=== PATIENT | female | born 1975 | race Caucasian/White ===

== ENCOUNTER 2016-08-03 05:23 | Inpatient (IN) | payer BC ==
[2016-07-30 16:20] LABS: WBC (NOT ORDERED) (RFLEX) 0 (0-5)
[2016-07-30 16:44] LABS: BASOPHILS 0.6 %; BASOPHILS ABSOLUTE 0.06 10/3/uL (0.0-0.16); EOSINOPHILS 3.6 %; EOSINOPHILS ABSOLUTE 0.39 10/3/uL (0.0-0.53); HEMATOCRIT 38.3 % (36.0-48.0); HEMOGLOBIN 12.7 g/dL (12.0-16.0); IMMATURE GRANULOCYTES 0.5 %; IMMATURE GRANULOCYTES ABSOLUTE 0.05 10/3/uL (0.0-0.11); LYMPHOCYTES 28.6 %; LYMPHOCYTES ABSOLUTE 3.06 10/3/uL (0.67-4.30); MEAN CORPUSCULAR HEMOGLOB 32.2 pg (26.0-34.0); MONOCYTES 5.8 %; MONOCYTES ABSOLUTE 0.62 10/3/uL (0.21-1.20); NEUTROPHILS 60.9 %; NEUTROPHILS ABSOLUTE 6.51 10/3/uL (2.02-8.40); PLATELET COUNT 388 10/3/uL (150-400); RBC DISTRIBUTION WIDTH 12.5 % (12.0-16.0); RED CELL COUNT 3.95 10/6/uL (4.0-5.6); WHITE BLOOD CELLS 10.7 10/3/uL (4.5-10.5)
[2016-07-30 16:47] LABS: MANUAL DIFF NO %; MEAN CORPUS HGB CONC 33.2 g/dL (32.0-36.0)
[2016-07-30 16:49] LABS: PROTIME (NOT ORD) 13.1 SEC (12.0-14.5)
[2016-07-30 17:03] LABS: A/G RATIO 1.3 (0.7-1.9); ALBUMIN 4.1 G/DL (3.5-5.0); ALKALINE PHOSPHATASE 76 U/L (45-117); BUN (BLOOD UREA NITROGEN) 12 MG/DL (6-23); CALCIUM, SERUM 9.9 MG/DL (8.5-10.4); CHLORIDE, SERUM 102 MMOL/L (96-112); CO2 (CARBON DIOXIDE) 27 MMOL/L (24-34); GFR AFRICAN AMERICAN 108 ML/MIN (>=60); GFR NON AFRICAN AMERICAN 93 ML/MIN (>=60); GLOBULIN 3.2 G/DL (2.5-4.1); GLUCOSE, SERUM 73 MG/DL (60-99); POTASSIUM, SERUM 4.6 MMOL/L (3.5-5.3); SGOT(AST) 21 U/L (5-40); SGPT(ALT) 23 U/L (5-65); SODIUM, SERUM 134 MMOL/L (135-148); TOTAL BILIRUBIN 0.2 MG/DL (0-1.2); TOTAL PROTEIN 7.3 G/DL (6.0-8.5)
[2016-07-30 17:38] LABS: ASCORBIC ACID (UR NOT ORDER) NEG (NEG); BILIRUBIN, URINE NEGATIVE (NEG); KETONE, URINE NEGATIVE (NEG); LEUKOCYTE ESTERASE(NOT OR NEG (NEG)
--- NOTE | ~2016-08-03 | CN ---
Consultation Report [facility] [address] [place]. [address] NAME: LOLITA CALLOWAY : 79 STATUS : ADM IN PAT#: [id number] AGE: 41 ADM/REG DATE : 08/03/16 MR#: [id number] REPORT SERV DATE: 08/05/16 DICTATED BY: BEN BERNAL DATE: 08/05/16 REPORT STATUS : Draft TRANSCRIBED BY: MODL DATE: 08/05/16 CONSULTATION DATE OF CONSULTATION: HISTORY OF PRESENT ILLNESS: 41-year-old, white female, who is status post surgery on 08/03/2016. 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 This was repaired and she was sent to the ICU. We were consulted today because of worsening respiratory distress overnight, where she was on a nasal cannula and her oxygen requirements have dramatically increased to being on 100% FiO2 on high BiPAP settings. She is breathing pretty rapidly and she is very anxious. Mother and fiance are in the room. Her chest x-ray today shows diffuse and traumatic worsening of bilateral infiltrates/edema. Apparently, she was having some vomiting yesterday, but she has had no fever for us. Her white blood cell count has increased. She was also put on Levophed over night for low blood pressure/hypotension. They also gave her some Lasix for low urine output, but unfortunately, her creatinine has bumped from 0.89, and 0.87, to a value of 1.35. Her blood gas this morning was 7.28, pCO2 41, PO2 107, bicarb 18.9, O2 saturation 97% on 100% FiO2 and on BiPAP 16/8. The patient states and verbalize that she was having cough and some discolored phlegm. REVIEW OF SYSTEMS: Otherwise unable to obtain. She does have a mediastinal chest tube that supposedly can be removed today and she does have a Trujillo catheter making some dark yellow urine. PAST MEDICAL HISTORY: Anxiety, depression, hypertension, and GERD. She had an echocardiogram which showed EF of 63% back in March 2016. PAST SURGICAL HISTORY: As above. SOCIAL HISTORY: She does smoke cigarettes. Occasional alcohol. ALLERGIES: MORPHINE. HOME MEDICATIONS: List reviewed. FAMILY HISTORY: Brother with leukemia. Father has cholesterol problems, hypertension, and heart failure. Mother of heart problems as well. PHYSICAL EXAMINATION: VITAL SIGNS: Per nursing flow sheet. GENERAL: Tachypneic, significant distress, and anxious. HEENT: Normocephalic and atraumatic. Pupils equal, round, and reactive to light. Consultation Report [place] [id number] [facility] [address] NAME: LOLITA CALLOWAY : 79 STATUS : ADM IN [facility]#: [id number] AGE: 41 ADM/REG DATE : 08/03/16 MR#: [id number] REPORT SERV DATE: 08/05/16 DICTATED BY: BEN BERNAL DATE: 08/05/16 REPORT STATUS : Draft TRANSCRIBED BY: CARLOS ALBERTO DATE: 08/05/16 NECK: Trachea midline. HEART: Regular rate and rhythm. No murmurs. LUNGS: Bilateral crackles. No wheezes. Positive accessory muscle use on BiPAP 16/8, 100% FiO2. GASTROINTESTINAL: Soft, nontender, and nondistended. There is a mediastinal chest tube in place. GENITOURINARY: Trujillo is in place with urine. LABORATORY DATA: Labs and radiology studies reviewed. ASSESSMENT/PLAN: 1. Acute hypoxic respiratory failure. 2. Pneumonia versus acute respiratory distress syndrome. 3. Acute kidney injury. 4. Hyponatremia. 5. Leukocytosis. 6. Status post hernia repair, which turned out to be an anterior diaphragmatic hernia Morgagni with hernia sac. PLAN: Intubation, the patient agreeable to elective intubation. We will check cultures, blood, urine, sputum, as well as lactate, and procalcitonin level, as well as cortisol. PICC line will be needed because of her being on pressors. We will get urine studies and give the patient a fluid bolus over a couple of hours. Start antibiotics include vancomycin and Zosyn. We will stop any nephrotoxic medications that could contribute to her elevated creatinine. 60 minutes of critical care time. CEP/MODL Ben Bernal DO / [id number] CC: MD Gael Perezke, MD
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
--- NOTE | ~2016-08-03 | OP ---
Record Of Operation [facility] [address] [place]. [address] NAME: LOLITA CALLOWAY : 79 STATUS : ADM IN [facility]#: [id number] AGE: 41 ADM/REG DATE : 08/03/16 MR#: [id number] REPORT SERV DATE: 08/05/16 DICTATED BY: BEN BERNAL DATE: 08/05/16 REPORT STATUS : Draft TRANSCRIBED BY: MODL DATE: 08/05/16 DATE OF PROCEDURE: 08/05/2016 PROCEDURE: Endotracheal intubation, elective semi-urgent. PREPROCEDURE DIAGNOSIS: Respiratory failure. POSTPROCEDURE DIAGNOSIS: Respiratory failure. DESCRIPTION: Verbal consent obtained from the patient while the mother and fiancee were in the room. The patient on BiPAP 168 on 100% FiO2. We had the patient on the BiPAP as were setting up for intubation. We had Ambu bag suction setup and we pulled up etomidate 30 mg. We sedated her with 20 mg Ambu bag with a PEEP valve in place set around 15 cm of water with Ambu bag. The highest we were able to get her oxygen saturation after given the etomidate only was 88%. I then proceeded with intubation. With a MAC 4 blade, was able to place a size 8 ET tube on the first attempt. We did get bilateral breath sounds and color change with colorimetry. We had the bagger for quite a while, but her sats after intubation went down into the lower 80s, but they did come up into the mid 90s after bagging her for several minutes. She had no significant complications from the procedure. She did start biting down on the ET tube and bit her lip after we got her intubated. Consequently, we gave her some propofol and also some 80 mg of rocuronium to help control her airway better and agitation, so we can get her oxygen saturations up. She is currently on the ventilator. Chest x-ray is pending. CEP/MODL Ben Bernal DO / [id number] CC: MD Gael Perez MD
--- NOTE | ~2016-08-03 | OP ---
Record Of Operation [facility] [address] [place]. [address] NAME: LOLITA CALLOWAY : 79 STATUS : ADM IN PAT#: [id number] AGE: 41 ADM/REG DATE : 08/03/16 MR#: [id number] REPORT SERV DATE: 08/04/16 DICTATED BY: MARLO LEPE DATE: 08/03/16 REPORT STATUS : Draft TRANSCRIBED BY: CARLOS ALBERTO DATE: 08/03/16 DATE OF PROCEDURE: 08/03/2016 DEPUTY CHIEF EXECUTIVE: Nicole Lezama. ANESTHESIOLOGIST: Jaun Kemp M.D. PREOPERATIVE DIAGNOSIS: Pericardial mass. POSTOPERATIVE DIAGNOSIS: Anterior diaphragmatic hernia of Morgagni with hernia sac in the pericardium. OPERATION AND PROCEDURE PERFORMED: 1. Median sternotomy. 2. Resection of hernia sac and contents. 3. Repair of diaphragmatic hernia. 4. Rigid external fixation of the sternum using a Biomet sternal lock blue system. 5. Prevena dressing placement. TUBES AND DRAINS: A 24-Citizen [place] Yan under the sternum. COMPLICATIONS: None. POSTOPERATIVE CONDITION: Stable to CV-ICU, extubated. INTRAOPERATIVE FINDINGS: Mass in the pericardium was an anterior diaphragmatic hernia. The sac was excised. The hernia was reduced, and the hernia defect was closed with 0 Ethibond mattress sutures. DETAILS OF STERNAL PLATING: The sternum was reapproximated with stainless steel sternal wires; some of these were double wires. The sternum was then plated with 100-degree plate on the body of the manubrium and then two 4-hole box plates was placed on the body of the sternum. A total of twelve 14 mm screws were used. INDICATIONS FOR PROCEDURE: Ms. Calloway is a 41-year-old female with some vague complaints of chest pain and shortness of breath, who was found to have, on echo, CT, KRISTOPHER, and MRI, what appeared to be a mass compressing her right atrium and right ventricle and superior vena cava. 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 She was seen. The risks, benefits, and alternatives were discussed, and she was brought to the operating room. DETAILS OF PROCEDURE: The patient was brought to the operating room and placed supine on the operating room table. After satisfactory induction of general endotracheal anesthesia, she was prepped and draped in the usual sterile fashion. Median sternotomy was performed. Skin and subcutaneous tissues were divided. Clavipectoral fascia was divided. The sternum was Record Of Operation [facility] [address] [facility] [place]. [address] NAME: LOLITA CALLOWAY : 79 STATUS : ADM IN PAT#: [id number] AGE: 41 ADM/REG DATE : 08/03/16 MR#: [id number] REPORT SERV DATE: 08/04/16 DICTATED BY: MARLO LEPE DATE: 08/03/16 REPORT STATUS : Draft TRANSCRIBED BY: MODL DATE: 08/03/16 divided in the midline. Sternal retractor was placed. Thymic tissue was divided in the midline and pericardium was opened. It became apparent there was what appeared to be a hernia sac with preperitoneal fat and omentum protruding through an anterior diaphragmatic hernia of Morgagni. Sac was opened. The contents were reduced. Sac was excised. The edges of the hernia defect were delineated and then the hernia was closed primarily using mattress 0 Ethibond sutures. There did not appear to be tension on the repair and did not want to close this with mesh as I did not want to have mesh overlying or abutting the heart. Eight pledgeted mattress 0 Ethibond sutures were used. At the end, the repair was palpated, and did not feel any other defects, and the procedure was terminated. A 24-Citizen [place] Yan was placed under the sternum. The pericardium was loosely reapproximated using 2-0 Vicryl, and the sternum was closed using interrupted stainless steel wires; some of these were double wires. Clavipectoral flaps were raised to the edge of the sternum, and then sternal plating was performed as mentioned above with one 100 degree plate and two 4-hole box plates with a total twelve 14 mm screws. The clavipectoral fascia was reapproximated using running #1 STRATAFIX. Subcutaneous tissue was closed using running #1 STRATAFIX. Skin was closed using 2-0 Quill. A Prevena dressing was placed. The patient was transferred to the CV-ICU in critical, stable condition. Scarlett/CARLOS ALBERTO Marlo Lepe MD / [id number] CC: MD Gael Perez MD
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
[~2016-08-03 05:23] MED LIST: ADVIL PO; ASAB PO; ATV1 PO; EDARBYCLOR 40-1 EACH PO; LEXAPRO10 PO; MELATONIN10 M2 PO; MULTIPLE VIT PO; PRILO PO; SINGULAIR1 PO
[2016-08-03 11:28] LABS: BASOPHILS 0.4 %; BASOPHILS ABSOLUTE 0.06 10/3/uL (0.0-0.16); EOSINOPHILS 2.1 %; EOSINOPHILS ABSOLUTE 0.36 10/3/uL (0.0-0.53); HEMATOCRIT 35.7 % (36.0-48.0); HEMOGLOBIN 11.9 g/dL (12.0-16.0); IMMATURE GRANULOCYTES 0.6 %; LYMPHOCYTES 16.3 %; LYMPHOCYTES ABSOLUTE 2.78 10/3/uL (0.67-4.30); MEAN CORPUS HGB CONC 33.3 g/dL (32.0-36.0); MEAN CORPUSCULAR HEMOGLOB 32.9 pg (26.0-34.0); MEAN CORPUSCULAR VOLUME 98.6 fL (80-100); MEAN PLATELET VOLUME 8.9 fL (9.2-13.0); MONOCYTES 3.2 %; MONOCYTES ABSOLUTE 0.54 10/3/uL (0.21-1.20); NEUTROPHILS 77.4 %; NEUTROPHILS ABSOLUTE 13.25 10/3/uL (2.02-8.40); PLATELET COUNT 289 10/3/uL (150-400); RBC DISTRIBUTION WIDTH 12.8 % (12.0-16.0); RED CELL COUNT 3.62 10/6/uL (4.0-5.6)
[2016-08-03 11:29] LABS: MANUAL DIFF NO %; WHITE BLOOD CELLS 17.1 10/3/uL (4.5-10.5)
[2016-08-03 11:34] LABS: INTERNATIONAL NORMAL RATI 1.1 UNITS (-); PARTIAL THROMBO TIME 27.5 SEC (22.5-37.2); PROTIME (NOT ORD) 14.4 SEC (12.0-14.5)
[2016-08-03 11:40] LABS: BUN (BLOOD UREA NITROGEN) 10 MG/DL (6-23); CALCIUM, SERUM 7.2 MG/DL (8.5-10.4); CHLORIDE, SERUM 106 MMOL/L (96-112); CO2 (CARBON DIOXIDE) 22 MMOL/L (24-34); CREATININE 0.89 MG/DL (0.55-1.02); GFR AFRICAN AMERICAN 95 ML/MIN (>=60); GFR NON AFRICAN AMERICAN 82 ML/MIN (>=60); GLUCOSE, SERUM 127 MG/DL (60-99); SODIUM, SERUM 136 MMOL/L (135-148)
[2016-08-03 12:28] LABS: FIBRINOGEN 244 MG/DL (230-462)
[2016-08-03 18:20] LABS: HEMATOCRIT 36.3 % (36.0-48.0); HEMOGLOBIN 11.8 g/dL (12.0-16.0)
[2016-08-03 18:35] LABS: POTASSIUM, SERUM 4.3 MMOL/L (3.5-5.3)
[2016-08-04 05:44] LABS: BASOPHILS 0.1 %; BASOPHILS ABSOLUTE 0.03 10/3/uL (0.0-0.16); EOSINOPHILS 0 %; EOSINOPHILS ABSOLUTE 0.01 10/3/uL (0.0-0.53); HEMATOCRIT 33.7 % (36.0-48.0); HEMOGLOBIN 11.2 g/dL (12.0-16.0); IMMATURE GRANULOCYTES 0.4 %; IMMATURE GRANULOCYTES ABSOLUTE 0.09 10/3/uL (0.0-0.11); LYMPHOCYTES 9.1 %; LYMPHOCYTES ABSOLUTE 1.97 10/3/uL (0.67-4.30); MEAN CORPUS HGB CONC 33.2 g/dL (32.0-36.0); MEAN CORPUSCULAR HEMOGLOB 33.1 pg (26.0-34.0); MEAN CORPUSCULAR VOLUME 99.7 fL (80-100); MEAN PLATELET VOLUME 9.1 fL (9.2-13.0); MONOCYTES 5.4 %; MONOCYTES ABSOLUTE 1.17 10/3/uL (0.21-1.20); NEUTROPHILS ABSOLUTE 18.45 10/3/uL (2.02-8.40); PLATELET COUNT 253 10/3/uL (150-400); RBC DISTRIBUTION WIDTH 12.6 % (12.0-16.0); RED CELL COUNT 3.38 10/6/uL (4.0-5.6); WHITE BLOOD CELLS 21.7 10/3/uL (4.5-10.5)
[2016-08-04 05:45] LABS: MANUAL DIFF NO %
[2016-08-04 05:53] LABS: INTERNATIONAL NORMAL RATI 1.1 UNITS (-); PROTIME (NOT ORD) 14.5 SEC (12.0-14.5)
[2016-08-04 05:57] LABS: BUN (BLOOD UREA NITROGEN) 8 MG/DL (6-23); CHLORIDE, SERUM 101 MMOL/L (96-112); CO2 (CARBON DIOXIDE) 25 MMOL/L (24-34); CREATININE 0.87 MG/DL (0.55-1.02); GFR AFRICAN AMERICAN 97 ML/MIN (>=60); GFR NON AFRICAN AMERICAN 84 ML/MIN (>=60); POTASSIUM, SERUM 4.3 MMOL/L (3.5-5.3); SODIUM, SERUM 132 MMOL/L (135-148)
[2016-08-04 06:00] LABS: GLUCOSE, SERUM 82 MG/DL (60-99)
[2016-08-04 17:41] LABS: HEMATOCRIT 32.8 % (36.0-48.0); HEMOGLOBIN 10.8 g/dL (12.0-16.0)
[2016-08-05 03:34] LABS: BASOPHILS 0.1 %; BASOPHILS ABSOLUTE 0.03 10/3/uL (0.0-0.16); EOSINOPHILS 0.2 %; EOSINOPHILS ABSOLUTE 0.04 10/3/uL (0.0-0.53); HEMATOCRIT 32.4 % (36.0-48.0); HEMOGLOBIN 10.8 g/dL (12.0-16.0); IMMATURE GRANULOCYTES 0.4 %; IMMATURE GRANULOCYTES ABSOLUTE 0.09 10/3/uL (0.0-0.11); LYMPHOCYTES 7.5 %; LYMPHOCYTES ABSOLUTE 1.72 10/3/uL (0.67-4.30); MEAN CORPUS HGB CONC 33.3 g/dL (32.0-36.0); MEAN CORPUSCULAR HEMOGLOB 33.4 pg (26.0-34.0); MEAN CORPUSCULAR VOLUME 100.3 fL (80-100); MEAN PLATELET VOLUME 9.3 fL (9.2-13.0); MONOCYTES 4.3 %; MONOCYTES ABSOLUTE 0.98 10/3/uL (0.21-1.20); NEUTROPHILS 87.5 %; NEUTROPHILS ABSOLUTE 19.99 10/3/uL (2.02-8.40); PLATELET COUNT 255 10/3/uL (150-400); RBC DISTRIBUTION WIDTH 12.5 % (12.0-16.0); RED CELL COUNT 3.23 10/6/uL (4.0-5.6); WHITE BLOOD CELLS 22.9 10/3/uL (4.5-10.5)
[2016-08-05 03:37] LABS: MANUAL DIFF NO %
[2016-08-05 03:50] LABS: BUN (BLOOD UREA NITROGEN) 10 MG/DL (6-23); CHLORIDE, SERUM 96 MMOL/L (96-112); CO2 (CARBON DIOXIDE) 23 MMOL/L (24-34); CREATININE 1.35 MG/DL (0.55-1.02); GFR AFRICAN AMERICAN 57 ML/MIN (>=60); GFR NON AFRICAN AMERICAN 49 ML/MIN (>=60); POTASSIUM, SERUM 4.4 MMOL/L (3.5-5.3); SODIUM, SERUM 127 MMOL/L (135-148)
[2016-08-05 03:51] LABS: GLUCOSE, SERUM 156 MG/DL (60-99)
[2016-08-05 10:22] LABS: ALLENS TEST Pos; BE (BASE EXCESS) -7.4 MEQ/L (0 +/- 2.5); BIPAP 16/8 cm.H2O; CARBOXYHEMOGLOBIN 0.3 % (0-3); HCO3 (ACTUAL BICARBONATE) 18.9 MEQ/L (23-27); HEMOBLOGIN CONTENT 11.4 G/DL (12-16); INSTRUMENT SERIAL # 11843; METHEMOGLOBIN 0.4 % (0-3); O2 CONTENT 15.6 VOL% (18-24); PCO2 (CO2 TENSION) 41 MMHG (35-45); PO2 (O2 TENSION) 107 MMHG (79-93); SAMPLE Arterial; pH 7.28 (7.37-7.43)
[2016-08-05 10:58] LABS: PROCALCITONIN 1.67 ng/mL (<0.5)
[2016-08-05 12:01] LABS: ALLENS TEST Pos; BE (BASE EXCESS) -5.4 MEQ/L (0 +/- 2.5); CARBOXYHEMOGLOBIN 0.3 % (0-3); HCO3 (ACTUAL BICARBONATE) 21.6 MEQ/L (23-27); HEMOBLOGIN CONTENT 11.7 G/DL (12-16); INSTRUMENT SERIAL # 11843; METHEMOGLOBIN 0.4 % (0-3); MODE CMV; O2 CONTENT 15.6 VOL% (18-24); PCO2 (CO2 TENSION) 48 MMHG (35-45); PO2 (O2 TENSION) 86 MMHG (79-93); SAMPLE Arterial; TIDAL VOLUME 400 ML; pH 7.27 (7.37-7.43)
[2016-08-05 13:12] LABS: ASCORBIC ACID (UR NOT ORDER) 40 (NEG); BILIRUBIN, URINE NEGATIVE (NEG); KETONE, URINE TRACE MG/DL (NEG); LEUKOCYTE ESTERASE(NOT OR NEG (NEG); WBC (NOT ORDERED) (RFLEX) 3 (0-5)
[2016-08-05 16:00] LABS: ALLENS TEST Pos; BE (BASE EXCESS) -3.9 MEQ/L (0 +/- 2.5); CARBOXYHEMOGLOBIN 0.3 % (0-3); HCO3 (ACTUAL BICARBONATE) 22.7 MEQ/L (23-27); HEMOBLOGIN CONTENT 11.1 G/DL (12-16); INSTRUMENT SERIAL # 11843; METHEMOGLOBIN 0.5 % (0-3); MODE CMV; PCO2 (CO2 TENSION) 48 MMHG (35-45); PO2 (O2 TENSION) 93 MMHG (79-93); SAMPLE Arterial; TIDAL VOLUME 400 ML; pH 7.29 (7.37-7.43)
[2016-08-05 22:38] LABS: BUN (BLOOD UREA NITROGEN) 8 MG/DL (6-23); CALCIUM, SERUM 7.8 MG/DL (8.5-10.4); CHLORIDE, SERUM 106 MMOL/L (96-112); CO2 (CARBON DIOXIDE) 24 MMOL/L (24-34); CREATININE 0.85 MG/DL (0.55-1.02); GFR AFRICAN AMERICAN 100 ML/MIN (>=60); GFR NON AFRICAN AMERICAN 86 ML/MIN (>=60); GLUCOSE, SERUM 139 MG/DL (60-99); POTASSIUM, SERUM 3.9 MMOL/L (3.5-5.3); SODIUM, SERUM 138 MMOL/L (135-148)
[2016-08-06 03:48] LABS: BASOPHILS 0.3 %; BASOPHILS ABSOLUTE 0.05 10/3/uL (0.0-0.16); EOSINOPHILS 2.6 %; EOSINOPHILS ABSOLUTE 0.41 10/3/uL (0.0-0.53); HEMATOCRIT 29.7 % (36.0-48.0); HEMOGLOBIN 9.8 g/dL (12.0-16.0); IMMATURE GRANULOCYTES 0.3 %; IMMATURE GRANULOCYTES ABSOLUTE 0.04 10/3/uL (0.0-0.11); LYMPHOCYTES 10.9 %; LYMPHOCYTES ABSOLUTE 1.71 10/3/uL (0.67-4.30); MEAN CORPUSCULAR HEMOGLOB 32.5 pg (26.0-34.0); MEAN CORPUSCULAR VOLUME 98.3 fL (80-100); MEAN PLATELET VOLUME 9.6 fL (9.2-13.0); MONOCYTES 6.1 %; MONOCYTES ABSOLUTE 0.96 10/3/uL (0.21-1.20); NEUTROPHILS 79.8 %; NEUTROPHILS ABSOLUTE 12.54 10/3/uL (2.02-8.40); PLATELET COUNT 275 10/3/uL (150-400); RBC DISTRIBUTION WIDTH 12.7 % (12.0-16.0); RED CELL COUNT 3.02 10/6/uL (4.0-5.6); WHITE BLOOD CELLS 15.7 10/3/uL (4.5-10.5)
[2016-08-06 03:56] LABS: MANUAL DIFF NO %
[2016-08-06 04:06] LABS: BUN (BLOOD UREA NITROGEN) 7 MG/DL (6-23); CHLORIDE, SERUM 105 MMOL/L (96-112); CO2 (CARBON DIOXIDE) 25 MMOL/L (24-34); CREATININE 0.74 MG/DL (0.55-1.02); GFR AFRICAN AMERICAN 118 ML/MIN (>=60); GFR NON AFRICAN AMERICAN 102 ML/MIN (>=60); GLUCOSE, SERUM 130 MG/DL (60-99); PHOSPHORUS, SERUM 1.1 MG/DL (2.5-4.5); POTASSIUM, SERUM 3.7 MMOL/L (3.5-5.3); SODIUM, SERUM 136 MMOL/L (135-148)
[2016-08-06 04:36] LABS: ALLENS TEST Pos; BE (BASE EXCESS) -0.1 MEQ/L (0 +/- 2.5); CARBOXYHEMOGLOBIN 0.3 % (0-3); HCO3 (ACTUAL BICARBONATE) 24.9 MEQ/L (23-27); HEMOBLOGIN CONTENT 10.9 G/DL (12-16); INSTRUMENT SERIAL # 11843; METHEMOGLOBIN 0.3 % (0-3); MODE CMV; O2 CONTENT 14.1 VOL% (18-24); OPERATOR ID 32193; PCO2 (CO2 TENSION) 42 MMHG (35-45); PO2 (O2 TENSION) 66 MMHG (79-93); SAMPLE Arterial; TIDAL VOLUME 400 ML; pH 7.39 (7.37-7.43)
[2016-08-07 03:22] LABS: INSTRUMENT SERIAL # 11843; PCO2 (CO2 TENSION) 38 MMHG (35-45); PO2 (O2 TENSION) 63 MMHG (79-93); pH 7.44 (7.37-7.43)
[2016-08-07 03:23] LABS: ALLENS TEST Pos; BE (BASE EXCESS) 1.3 MEQ/L (0 +/- 2.5); CARBOXYHEMOGLOBIN 0.3 % (0-3); HCO3 (ACTUAL BICARBONATE) 25.3 MEQ/L (23-27); HEMOBLOGIN CONTENT 10.3 G/DL (12-16); METHEMOGLOBIN 0.3 % (0-3); MODE CMV; O2 CONTENT 13.1 VOL% (18-24); OPERATOR ID 17370; SAMPLE Arterial; TIDAL VOLUME 400 ML
[2016-08-07 03:53] LABS: BASOPHILS 0.4 %; BASOPHILS ABSOLUTE 0.05 10/3/uL (0.0-0.16); EOSINOPHILS 3.2 %; EOSINOPHILS ABSOLUTE 0.43 10/3/uL (0.0-0.53); HEMATOCRIT 26.9 % (36.0-48.0); HEMOGLOBIN 9.1 g/dL (12.0-16.0); IMMATURE GRANULOCYTES 0.3 %; IMMATURE GRANULOCYTES ABSOLUTE 0.04 10/3/uL (0.0-0.11); LYMPHOCYTES 12.6 %; MEAN CORPUS HGB CONC 33.8 g/dL (32.0-36.0); MEAN CORPUSCULAR HEMOGLOB 33.3 pg (26.0-34.0); MEAN CORPUSCULAR VOLUME 98.5 fL (80-100); MEAN PLATELET VOLUME 9.4 fL (9.2-13.0); MONOCYTES 7.4 %; NEUTROPHILS 76.1 %; NEUTROPHILS ABSOLUTE 10.23 10/3/uL (2.02-8.40); PLATELET COUNT 296 10/3/uL (150-400); RBC DISTRIBUTION WIDTH 12.8 % (12.0-16.0); RED CELL COUNT 2.73 10/6/uL (4.0-5.6); WHITE BLOOD CELLS 13.5 10/3/uL (4.5-10.5)
[2016-08-07 03:58] LABS: MANUAL DIFF NO %
[2016-08-07 04:04] LABS: BUN (BLOOD UREA NITROGEN) 7 MG/DL (6-23); CALCIUM, SERUM 7.8 MG/DL (8.5-10.4); CHLORIDE, SERUM 104 MMOL/L (96-112); CO2 (CARBON DIOXIDE) 28 MMOL/L (24-34); CREATININE 0.67 MG/DL (0.55-1.02); GFR AFRICAN AMERICAN 128 ML/MIN (>=60); GFR NON AFRICAN AMERICAN 111 ML/MIN (>=60); GLUCOSE, SERUM 116 MG/DL (60-99); PHOSPHORUS, SERUM 2.6 MG/DL (2.5-4.5); SODIUM, SERUM 140 MMOL/L (135-148)
[2016-08-08 03:48] LABS: ALLENS TEST Pos; BE (BASE EXCESS) 3.9 MEQ/L (0 +/- 2.5); CARBOXYHEMOGLOBIN 0.3 % (0-3); HCO3 (ACTUAL BICARBONATE) 27.5 MEQ/L (23-27); HEMOBLOGIN CONTENT 9.7 G/DL (12-16); INSTRUMENT SERIAL # 11843; METHEMOGLOBIN 0.5 % (0-3); MODE CMV; OPERATOR ID 32193; PCO2 (CO2 TENSION) 37 MMHG (35-45); PO2 (O2 TENSION) 81 MMHG (79-93); SAMPLE Arterial; TIDAL VOLUME 400 ML; pH 7.48 (7.37-7.43)
[2016-08-08 04:14] LABS: BASOPHILS 0.5 %; BASOPHILS ABSOLUTE 0.05 10/3/uL (0.0-0.16); EOSINOPHILS 5.6 %; EOSINOPHILS ABSOLUTE 0.59 10/3/uL (0.0-0.53); HEMATOCRIT 26.8 % (36.0-48.0); HEMOGLOBIN 8.9 g/dL (12.0-16.0); IMMATURE GRANULOCYTES 0.4 %; IMMATURE GRANULOCYTES ABSOLUTE 0.04 10/3/uL (0.0-0.11); LYMPHOCYTES ABSOLUTE 1.67 10/3/uL (0.67-4.30); MEAN CORPUS HGB CONC 33.2 g/dL (32.0-36.0); MEAN CORPUSCULAR HEMOGLOB 32.7 pg (26.0-34.0); MEAN CORPUSCULAR VOLUME 98.5 fL (80-100); MEAN PLATELET VOLUME 9.3 fL (9.2-13.0); MONOCYTES 8.5 %; MONOCYTES ABSOLUTE 0.89 10/3/uL (0.21-1.20); NEUTROPHILS ABSOLUTE 7.21 10/3/uL (2.02-8.40); PLATELET COUNT 309 10/3/uL (150-400); RED CELL COUNT 2.72 10/6/uL (4.0-5.6); WHITE BLOOD CELLS 10.5 10/3/uL (4.5-10.5)
[2016-08-08 04:16] LABS: MANUAL DIFF NO %
[2016-08-08 04:22] LABS: BUN (BLOOD UREA NITROGEN) 7 MG/DL (6-23); CALCIUM, SERUM 8.3 MG/DL (8.5-10.4); CHLORIDE, SERUM 101 MMOL/L (96-112); CO2 (CARBON DIOXIDE) 28 MMOL/L (24-34); CREATININE 0.71 MG/DL (0.55-1.02); GFR AFRICAN AMERICAN 124 ML/MIN (>=60); GFR NON AFRICAN AMERICAN 107 ML/MIN (>=60); GLUCOSE, SERUM 95 MG/DL (60-99); SODIUM, SERUM 139 MMOL/L (135-148)
[2016-08-08 04:27] LABS: POTASSIUM, SERUM 2.8 MMOL/L (3.5-5.3)
[2016-08-08 04:57] LABS: PROCALCITONIN 0.57 ng/mL (<0.5)
[2016-08-08 09:08] LABS: POTASSIUM, SERUM 3.7 MMOL/L (3.5-5.3)
[2016-08-08 17:26] LABS: POTASSIUM, SERUM 3.2 MMOL/L (3.5-5.3)
[2016-08-08 23:15] LABS: POTASSIUM, SERUM 3.8 MMOL/L (3.5-5.3)
[2016-08-09 04:37] LABS: BASOPHILS 0.6 %; BASOPHILS ABSOLUTE 0.05 10/3/uL (0.0-0.16); EOSINOPHILS 8.3 %; EOSINOPHILS ABSOLUTE 0.65 10/3/uL (0.0-0.53); HEMATOCRIT 27.3 % (36.0-48.0); HEMOGLOBIN 9.2 g/dL (12.0-16.0); IMMATURE GRANULOCYTES 0.4 %; IMMATURE GRANULOCYTES ABSOLUTE 0.03 10/3/uL (0.0-0.11); LYMPHOCYTES 20.5 %; LYMPHOCYTES ABSOLUTE 1.61 10/3/uL (0.67-4.30); MEAN CORPUS HGB CONC 33.7 g/dL (32.0-36.0); MEAN CORPUSCULAR HEMOGLOB 33.5 pg (26.0-34.0); MEAN CORPUSCULAR VOLUME 99.3 fL (80-100); MEAN PLATELET VOLUME 9.2 fL (9.2-13.0); MONOCYTES 9.4 %; MONOCYTES ABSOLUTE 0.74 10/3/uL (0.21-1.20); NEUTROPHILS 60.8 %; NEUTROPHILS ABSOLUTE 4.76 10/3/uL (2.02-8.40); PLATELET COUNT 322 10/3/uL (150-400); RBC DISTRIBUTION WIDTH 13.2 % (12.0-16.0); RED CELL COUNT 2.75 10/6/uL (4.0-5.6); WHITE BLOOD CELLS 7.8 10/3/uL (4.5-10.5)
[2016-08-09 04:39] LABS: MANUAL DIFF NO %
[2016-08-09 04:53] LABS: BUN (BLOOD UREA NITROGEN) 8 MG/DL (6-23); CALCIUM, SERUM 8.7 MG/DL (8.5-10.4); CHLORIDE, SERUM 101 MMOL/L (96-112); CO2 (CARBON DIOXIDE) 30 MMOL/L (24-34); CREATININE 0.67 MG/DL (0.55-1.02); GFR AFRICAN AMERICAN 128 ML/MIN (>=60); GFR NON AFRICAN AMERICAN 111 ML/MIN (>=60); GLUCOSE, SERUM 92 MG/DL (60-99); POTASSIUM, SERUM 3.6 MMOL/L (3.5-5.3); SODIUM, SERUM 140 MMOL/L (135-148)
[2016-08-09 11:29] LABS: ALLENS TEST Pos; BE (BASE EXCESS) 5.4 MEQ/L (0 +/- 2.5); CARBOXYHEMOGLOBIN 0.3 % (0-3); DEVICE HFNC; INSTRUMENT SERIAL # 11843; METHEMOGLOBIN 0.4 % (0-3); O2 CONTENT 14.5 VOL% (18-24); OPERATOR ID 13624; PCO2 (CO2 TENSION) 44 MMHG (35-45); PO2 (O2 TENSION) 75 MMHG (79-93); SAMPLE Arterial; pH 7.45 (7.37-7.43)
[2016-08-10 03:52] LABS: BASOPHILS 0.4 %; BASOPHILS ABSOLUTE 0.04 10/3/uL (0.0-0.16); EOSINOPHILS 3.5 %; EOSINOPHILS ABSOLUTE 0.32 10/3/uL (0.0-0.53); HEMATOCRIT 27.1 % (36.0-48.0); HEMOGLOBIN 8.8 g/dL (12.0-16.0); IMMATURE GRANULOCYTES 0.5 %; IMMATURE GRANULOCYTES ABSOLUTE 0.05 10/3/uL (0.0-0.11); LYMPHOCYTES 18.4 %; LYMPHOCYTES ABSOLUTE 1.68 10/3/uL (0.67-4.30); MEAN CORPUS HGB CONC 32.5 g/dL (32.0-36.0); MEAN CORPUSCULAR HEMOGLOB 32.6 pg (26.0-34.0); MEAN CORPUSCULAR VOLUME 100.4 fL (80-100); MEAN PLATELET VOLUME 8.8 fL (9.2-13.0); MONOCYTES 10.7 %; MONOCYTES ABSOLUTE 0.98 10/3/uL (0.21-1.20); NEUTROPHILS 66.5 %; NEUTROPHILS ABSOLUTE 6.06 10/3/uL (2.02-8.40); PLATELET COUNT 394 10/3/uL (150-400); WHITE BLOOD CELLS 9.1 10/3/uL (4.5-10.5)
[2016-08-10 03:59] LABS: MANUAL DIFF NO %
[2016-08-10 04:06] LABS: BUN (BLOOD UREA NITROGEN) 14 MG/DL (6-23); CALCIUM, SERUM 8.9 MG/DL (8.5-10.4); CHLORIDE, SERUM 101 MMOL/L (96-112); CO2 (CARBON DIOXIDE) 28 MMOL/L (24-34); CREATININE 0.81 MG/DL (0.55-1.02); GFR AFRICAN AMERICAN 106 ML/MIN (>=60); GFR NON AFRICAN AMERICAN 91 ML/MIN (>=60); GLUCOSE, SERUM 102 MG/DL (60-99); POTASSIUM, SERUM 3.4 MMOL/L (3.5-5.3); SODIUM, SERUM 141 MMOL/L (135-148)
[2016-08-10 05:45] LABS: PROCALCITONIN 0.23 ng/mL (<0.5)
[2016-08-11 03:52] LABS: BASOPHILS 0.9 %; BASOPHILS ABSOLUTE 0.11 10/3/uL (0.0-0.16); EOSINOPHILS 3.3 %; HEMOGLOBIN 10.2 g/dL (12.0-16.0); IMMATURE GRANULOCYTES 1.1 %; IMMATURE GRANULOCYTES ABSOLUTE 0.13 10/3/uL (0.0-0.11); LYMPHOCYTES 18.3 %; MEAN CORPUS HGB CONC 32.9 g/dL (32.0-36.0); MEAN CORPUSCULAR HEMOGLOB 32.3 pg (26.0-34.0); MEAN CORPUSCULAR VOLUME 98.1 fL (80-100); MEAN PLATELET VOLUME 8.9 fL (9.2-13.0); MONOCYTES 11.1 %; MONOCYTES ABSOLUTE 1.34 10/3/uL (0.21-1.20); NEUTROPHILS 65.3 %; NEUTROPHILS ABSOLUTE 7.86 10/3/uL (2.02-8.40); RBC DISTRIBUTION WIDTH 12.8 % (12.0-16.0); RED CELL COUNT 3.16 10/6/uL (4.0-5.6)
[2016-08-11 03:53] LABS: PLATELET COUNT 515 10/3/uL (150-400)
[2016-08-11 03:54] LABS: MANUAL DIFF NO %
[2016-08-11 03:59] LABS: BUN (BLOOD UREA NITROGEN) 17 MG/DL (6-23); CALCIUM, SERUM 9.8 MG/DL (8.5-10.4); CHLORIDE, SERUM 95 MMOL/L (96-112); CO2 (CARBON DIOXIDE) 31 MMOL/L (24-34); CREATININE 0.83 MG/DL (0.55-1.02); GFR AFRICAN AMERICAN 103 ML/MIN (>=60); GFR NON AFRICAN AMERICAN 89 ML/MIN (>=60); GLUCOSE, SERUM 109 MG/DL (60-99); POTASSIUM, SERUM 3.3 MMOL/L (3.5-5.3); SODIUM, SERUM 139 MMOL/L (135-148)
[2016-08-11 12:23] LABS: POTASSIUM, SERUM 3.8 MMOL/L (3.5-5.3)
[2016-08-12 07:04] LABS: BASOPHILS 0.8 %; BASOPHILS ABSOLUTE 0.11 10/3/uL (0.0-0.16); EOSINOPHILS 3.6 %; HEMOGLOBIN 10.5 g/dL (12.0-16.0); IMMATURE GRANULOCYTES 1.6 %; IMMATURE GRANULOCYTES ABSOLUTE 0.22 10/3/uL (0.0-0.11); LYMPHOCYTES 19.7 %; LYMPHOCYTES ABSOLUTE 2.75 10/3/uL (0.67-4.30); MEAN CORPUS HGB CONC 32.8 g/dL (32.0-36.0); MEAN CORPUSCULAR VOLUME 97.6 fL (80-100); MEAN PLATELET VOLUME 8.9 fL (9.2-13.0); MONOCYTES 12.3 %; MONOCYTES ABSOLUTE 1.71 10/3/uL (0.21-1.20); NEUTROPHILS ABSOLUTE 8.66 10/3/uL (2.02-8.40); PLATELET COUNT 612 10/3/uL (150-400); RBC DISTRIBUTION WIDTH 12.7 % (12.0-16.0); RED CELL COUNT 3.28 10/6/uL (4.0-5.6)
[2016-08-12 07:09] LABS: BUN (BLOOD UREA NITROGEN) 24 MG/DL (6-23); CALCIUM, SERUM 10.2 MG/DL (8.5-10.4); CHLORIDE, SERUM 98 MMOL/L (96-112); CO2 (CARBON DIOXIDE) 29 MMOL/L (24-34); CREATININE 0.69 MG/DL (0.55-1.02); GFR AFRICAN AMERICAN 127 ML/MIN (>=60); GFR NON AFRICAN AMERICAN 110 ML/MIN (>=60); GLUCOSE, SERUM 104 MG/DL (60-99); MANUAL DIFF NO %; POTASSIUM, SERUM 3.4 MMOL/L (3.5-5.3); SODIUM, SERUM 137 MMOL/L (135-148)
[2016-08-13] MEDS ORDERED: NORCO1 TA1 PO (11:16)
== END 2016-08-13 12:10 | disposition home or self-care (01) | DRG 326 ==
LOC: SDC/OF 05:23 → CVICU 10:00 → 5NO 08-11 14:34
PROVIDERS: Family Medicine; Internal Medicine Critical Care Medicine; Internal Medicine Pulmonary Disease; Thoracic Surgery (Cardiothoracic Vascular Surgery)
PROC: 5A1945Z Respiratory Ventilation, 24-96 Consecutive Hours (ICD-10-PCS; principal; 2016-08-03 07:30)
PROC: 0BQS0ZZ (ICD-10-PCS; 2016-08-03 07:30)
PROC: 0BH17EZ Insertion of Endotracheal Airway into Trachea, Via Natural or Artificial Opening (ICD-10-PCS; 2016-08-03 07:30)
PROC: 0BQR0ZZ (ICD-10-PCS; 2016-08-03 07:30)
PROC: 0PH000Z Insertion of Rigid Plate Internal Fixation Device into Sternum, Open Approach (ICD-10-PCS; 2016-08-03 07:30)
PROC: 02HV33Z Insertion of Infusion Device into Superior Vena Cava, Percutaneous Approach (ICD-10-PCS; 2016-08-05)
DX: K44.9 Diaphragmatic hernia without obstruction or gangrene (principal); J95.821 Acute postprocedural respiratory failure; N17.9 Acute kidney failure, unspecified; I31.9 Disease of pericardium, unspecified; E87.1 Hypo-osmolality and hyponatremia; F41.9 Anxiety disorder, unspecified; F32.9 Major depressive disorder, single episode, unspecified; I10 Essential (primary) hypertension; K21.9 Gastro-esophageal reflux disease without esophagitis; F17.210 Nicotine dependence, cigarettes, uncomplicated; Z88.5 Allergy status to narcotic agent; Z82.49 Family history of ischemic heart disease and other diseases of the circulatory system
CPT/HCPCS: 31720; 36415; 36569; 36600; 71010; 71020; 74000; 80048; 80053; 80202; 81001; 82330; 82533; 82570; 82803; 82805; 82947; 82962; 83036; 83540; 83550; 83605; 83735; 84100; 84132; 84145; 84156; 84295; 84300; 84703; 85014; 85018; 85025; 85347; 85384; 85610; 85730; 86850; 86900; 86901; 86920; 87040; 87070; 87205; 87449; 87641; 88302; 93005; 93312; 93320; 93325; 94002; 94003; 94640; 94660; 94770; A9270-GY; C1713; C1751; J0690; J1170; J1644; J1885; J1940; J2250; J2370; J2405; J2543; J2710; J2795; J3010; J3370; J3475; J3480; P9045; P9047